=== PATIENT | female | born 1965 | race Caucasian/White ===

== ENCOUNTER 2016-10-26 09:10 | Day surgery (SDC) | payer BC ==
[~2016-10-26 09:10] MED LIST: RINGER'S SOLUTION,LACTATED 1,000 ML IV PRN
--- NOTE | 2016-10-26 11:13 | OR ---
Operative Report - Dictated Report Narrative: Date: 10/26/2016 Preop dx: screen for colon cancer Postop dx: Sigmoid diverticulum x 1. Mild internal hemorrhoid x 1. Procedure: total colonoscopy Surgeon: Gene Bowman MD Anesthesia: MAC per ENTERTAINMENT USHER EBL: none Description: After informed consent and appropriate sedation the patient was placed in the left lateral decubitus position. A flexible fiberoptic video colonoscope was introduced and advanced under direct vision without difficulty to the cecum. The usual landmarks were identified. Preparation was good and good views were obtained. The findings were of a normal cecum, ascending colon, hepatic flexure, transverse colon, splenic flexure, descending colon. One small diverticulum was noted in the sigmoid but was otherwise normal. Rectum was normal. Retroflex view demonstrates one minor internal hemorrhoid. The mucosal color, vasculature, and texture were normal throughout. No suspicious masses were seen. The patient tolerated the procedure well without apparent complications and was discharged from the endoscopy suite in stable condition.
[2016-10-26 12:12] VITALS: BP 131/80
== END 2016-10-26 09:11 | disposition home or self-care (01) ==
LOC: AMB 09:10
PROVIDERS: ATTEND Specialist
PROC: 0DJD8ZZ Inspection of Lower Intestinal Tract, Via Natural or Artificial Opening Endoscopic (ICD-10-PCS; principal; 2016-10-26 10:00)
DX: Z12.11 Encounter for screening for malignant neoplasm of colon (principal); K57.30 Diverticulosis of large intestine without perforation or abscess without bleeding; K64.8 Other hemorrhoids; E11.9 Type 2 diabetes mellitus without complications; E78.00 Pure hypercholesterolemia, unspecified; Z80.0 Family history of malignant neoplasm of digestive organs; Z68.41 Body mass index [BMI] 40.0-44.9, adult